=== PATIENT | male | born 1955 | race Caucasian/White ===

== ENCOUNTER 2019-01-28 15:07 | Inpatient (IN) | payer MEDICAID ==
[~2019-01-28] VITALS: Ht 193 cm; Wt 119.3 kg
--- NOTE | ~2019-01-28 | PR ---
[place], [place] PROGRESS NOTE NAME: SHANE DUNCAN UNIT #: [id number] ROOM: 316 DOCTOR: KIM CRUZ DO BIRTHDATE: [birth year] DOS: 02/01/2019 PSYCHIATRIC PROGRESS NOTE. CHIEF COMPLAINT: "Hi, how are you?" SUMMARY VISIT: The patient is interviewed while sitting in the dining garcia. He states he slept well and has no side effects from the medications. He mentioned that he would like us to communicate with his today regarding discharge and placement. Per nursing, the patient slept about 5 hours last night, but was up a few times in the quiet room. They noticed that when he is lying down, he does not have as many of his choreiform movements and that they are more significant when he is sitting in a chair or trying to take his medication. Staff reports the patient's mood has been stable and he is able to communicate appropriately with him. He has been polite with them as well as his peers. MENTAL STATUS EXAMINATION: He is alert and oriented with some time gaps. Mood does seem to be more euthymic. Affect is appropriate. There is no judy, hypomania or gross psychosis. Memory for the most part is intact. PLAN: His valproic acid level was 62.6. We will continue current medication regimen. We will continue to monitor and support, engage in individual and knowles milieu activity, returning to the least restrictive environment when psychiatrically stable. Kim Cruz, DO ARVIN FONTENOT MD CM:PNTRANS [id number] KIM CRUZ DO 02/01/19 1346 interface
--- NOTE | ~2019-01-28 | WRIGHTHP ---
[place], [place] PATIENT HISTORY AND PHYSICAL EXAM NAME: SHANE DUNCAN UNIT #: [id number] ROOM: 316 DOCTOR: ARVIN FONTENOT MD BIRTHDATE: [birth year] DOS: 01/29/2019 CHIEF COMPLAINT: "My Elwell's gets me irritable." HISTORY OF PRESENT ILLNESS: This is a 63-year-old white male who is a resident of [facility] in [place], [place]. The patient is admitted to the [facility] because of his significant alteration in mental status. The patient has become increasingly verbally and physically aggressive and stood over his roommate making verbal threats to cause harm to him. Additionally, he was found fondling of female's breast and his behavior has been increasingly more impulsive and out of control. Because he is putting others at risk for self-harm, it was felt that an inpatient stabilization was warranted. PAST MEDICAL HISTORY: Remarkable for Elwell's disease, osteoarthritis, diabetes, CVA, hyperlipidemia, hypertension, debility, seizure disorder, which is questionable and dementia. SOCIAL HISTORY: The patient is a current cigarette smoker, the length and amount is unknown. He does not use illicit drugs nor does he drink alcohol. ALLERGIES: He lists no known allergies. STRENGTHS: Ambulatory, good verbal skills. WEAKNESSES: Chronic medical and mental health issues, poor coping skills. MENTAL STATUS: The patient is alert and oriented with some minor time gaps. Mood does seem to be somewhat irritable and on edge. He is somewhat dismissive. He denies any symptoms of judy or hypomania and denies current auditory or visual hallucinations. Short-term memory has mild gaps. DIAGNOSES: Intermittent explosive disorder. PLAN: I have already discontinued Zoloft, olanzapine, melatonin and Tagamet in lieu of Risperdal 1 mg twice daily and I have maintained him on Depakote, but increased the dose to 250 mg 3 times a day. I will also now add Exelon patch 4.6 mg daily to impact positively on ADL maintenance, behavior and cognition. We will engage in individual and knowles milieu activities, returning to the least restrictive environment when psychiatrically stable. [place], [place] PATIENT HISTORY AND PHYSICAL EXAM NAME: SHANE DUNCAN UNIT #: [id number] ROOM: 316 DOCTOR: ARVIN FONTENOT MD BIRTHDATE: [birth year] ARVIN FONTENOT MD CM:HISPHYS:PATIENT HISTORY AND PHYSICAL EXAMINATION 8 7 ARVIN FONTENOT MD 01/29/1919 interface
--- NOTE | ~2019-01-28 | PR ---
[place], [place] PROGRESS NOTE NAME: SHANE DUNCAN UNIT #: [id number] ROOM: 316 DOCTOR: ARVIN FONTENOT MD BIRTHDATE: [birth year] DOS: 01/31/2019 INTERVAL NOTE CHIEF COMPLAINT: "I am feeling good, thank you for helping me." SUMMARY OF THE VISIT: The patient was interviewed as he was finishing his breakfast. He reached out and shook my hand. He reports he is feeling better, sleeping well and nurses report no major behaviors. We have not seen any sexually inappropriate behavior either. He is tolerating the current medication regimen well. He is still exhibiting significant choreiform movements. MENTAL STATUS: He is alert and oriented with some time gaps. Mood does seem to be more euthymic. Affect is more appropriate. There is no judy, hypomania or gross psychosis. PLAN: I will increase his Celexa from 10 mg a day to 20 mg a day to combat depression and decrease libido. I will check a valproic acid level in the a.m. to ensure it is therapeutic. We will engage in individual and knowles milieu activity, returning to the least restrictive environment when psychiatrically stable. ARVIN FONTENOT MD CM:PNTRANS [id number] ARVIN FONTENOT MD 01/31/19 1037 interface
--- NOTE | ~2019-01-28 | PR ---
[place], [place] PROGRESS NOTE NAME: SHANE DUNCAN UNIT #: [id number] ROOM: 316 DOCTOR: JOEL SMITH CNP BIRTHDATE: [birth year] DOS: 02/02/2019 CHIEF COMPLAINT: "I'm doing well." SUMMARY OF THE VISIT: The patient was interviewed as he sat in the dining room, eating his breakfast. The patient engaged readily in conversation with me. The patient reports that he slept well last night and that his appetite has been good. The patient denies feeling agitated or anxious. He reports that he is happy. Staff reports that the patient has been compliant taking medications as prescribed. No inappropriate sexual behavior. The patient appears to be stable. MENTAL STATUS EXAMINATION: The patient is alert and oriented to person, place and time. He was pleasant and cooperative with me. No judy or hypomania noted. No delusions or paranoia noted. No psychotic symptoms noted. No auditory or visual hallucinations noted. The patient's mood was calm and bright. His affect congruent with mood. PLAN: We will continue the patient's medications as prescribed. The patient appears to be tolerating meds without side effects. We will continue to monitor for benefits and side effects. We will continue to encourage the patient to engage in individual and knowles milieu activity. Continue fall and safety precautions and plan to return the patient to the least restrictive environment once he is considered psychiatrically stable. Joel Smith CNP CM:PNTRANS 0938 JOEL SMITH CNP 02/02/19 0938 interface
--- NOTE | ~2019-01-28 | DS ---
[place], [place] DISCHARGE SUMMARY [id number] UN[facility] #: [id number] ROOM: 316 DOCTOR: ARVIN FONTENOT MD BIRTHDATE: [birth year] DOS: 02/05/2019 DISCHARGE SUMMARY CHIEF COMPLAINT: "My Waupaca's gets me irritable." HISTORY OF PRESENT ILLNESS: This is a 63-year-old white male who is a resident of [facility]. The patient is admitted to the [facility] Because of the significant alteration in mental status. He has become both verbally and physically aggressive. He stood over his roommate making verbal threats to cause harm to him. Additionally, he was found fondling a female's breast and his behavior has been increasingly more impulsive and out of control. Because he is putting himself and others at substantial risk of harm, he was admitted to the [facility] to rule out organic factors, to stabilize on medication, returning to the least restrictive environment when psychiatrically stable. SUMMARY OF HOSPITAL COURSE: The patient was admitted to the unit where his psychotropic regimen was discontinued. This included Zoloft, olanzapine, and also Tagamet. He was started instead on Risperdal 1 mg twice a day and Depakote 250 mg 3 times a day, Celexa was utilized both as an antidepressant and to decrease libido. Celexa was started at 10 mg a day, increased to 20 mg a day. During the course of his stay, the Depakote was increased to 500 mg a day. He was also started on Exelon patch 4.6 mg a day and during the course of his stay increased to 13.3 mg a day to improve ADLs, behavior and cognition. Overall, the patient had a dramatic improvement. He did not exhibit any sexual acting out. He did not exhibit any verbal or physical aggression. He tolerated the medication changes well and even noted that his choreiform movements decreased in frequency and intensity. He voiced a willingness and a readiness to return back to [facility]. MENTAL STATUS AT DISCHARGE: The patient is alert and oriented with some time gaps. Mood does seem to be euthymic. Affect is appropriate. There is no judy, hypomania or psychosis. Short term memory has some mild gaps, but for the most part, he is intact. 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 DISPOSITION: All of his prescriptions have been e-scribed to the [facility] [place]. At the time of discharge, he is medically and psychiatrically stable. I will be the treating psychiatrist of record upon his readmission to [facility]. [place], [place] DISCHARGE SUMMARY NAME: SHANE DUNCAN UNIT #: [id number] ROOM: 316 DOCTOR: ARVIN FONTENOT MD BIRTHDATE: [birth year] ARVIN FONTENOT MD CM:DISCHARG [id number] ARVIN FONTENOT MD 02/05/19 1010 interface
--- NOTE | ~2019-01-28 | PR ---
[place], [place] PROGRESS NOTE [id number] UN[facility] #: [id number] ROOM: 316 DOCTOR: KIM CRUZ DO BIRTHDATE: [birth year] DOS: 01/30/2019 PSYCHIATRIC PROGRESS NOTE CHIEF COMPLAINT: "My visited last night and we have been together for 46 years. SUMMARY OF THE VISIT: The patient is interviewed while sitting in the dining garcia. He states he slept well and denies any side effects from the medications. We advised the patient that we will continue to work on his medications to help with his constant body movements that are secondary to his Forrest's disease and he agrees with the plan. He states he liked how his visited him last night and that they have been together for over 46 years. He is polite and cooperative throughout the entire interview. Per nursing, the patient slept throughout the night. Staff reports the patient's mood has been stable and he is able to communicate appropriately. He has been polite with staff and peers. He did, however, refuse glucose checks and insulin coverage, but he states that they do not do that in the jail [facility]. MENTAL STATUS EXAMINATION: He is alert and oriented x 3. He denies any symptoms of judy or hypomania. Denies current auditory or visual hallucinations. Short-term memory has some mild gaps. Mood is overall euthymic. Affect is appropriate. PLAN: Increase his Risperdal to 1 mg t.i.d. We will continue to monitor and support, engage in individual and knowles milieu activity, returning to the least restrictive environment when psychiatrically stable. Kim Cruz, DO ARVIN FONTENOT MD CM:SEDRICK 2 46 KIM CRUZ DO 01/30/192246 interface
--- NOTE | ~2019-01-28 | PR ---
[place], [place] PROGRESS NOTE NAME: SHANE DUNCAN UNIT #: [id number] ROOM: 316 DOCTOR: ARVIN FONTENOT MD BIRTHDATE: [birth year] DOS: 02/04/2019 INTERVAL NOTE CHIEF COMPLAINT: "Good morning doc, thanks for everything." SUMMARY OF THE VISIT: The patient was interviewed in the dining room where he was sitting with female peers. He stopped and engaged readily in conversation with me shaking my hand and thanking me for everything I have done. He reports he feels good and that he even notes that his tremors and choreiform movements have lessened in intensity. He reports no other issues and denies sedation, somnolence, extrapyramidal symptoms or tardive dyskinesia. MENTAL STATUS: He is alert and oriented with some time gaps. Mood does seem to be more euthymic. Affect is more appropriate. There is no judy, hypomania or gross psychosis. Short-term memory does have some mild gaps. PLAN: I will go ahead and increase his Exelon patch from 4.6 to 9.5 mg a day in an effort to impact positively on ADL maintenance, behavior and cognition, maintain his other psychotropic medications, engage in individual and knowles milieu activity, returning to the least restrictive environment when psychiatrically stable. ARVIN FONTENOT MD CM:PNTRANS [id number] ARVIN FONTENOT MD 02/04/19 1148 interface
[2019-01-28] MEDS ORDERED: ZOLOFT100 MG PO (20:21)
[2019-01-28] MEDS ORDERED: ZYPREXA5 M1 PO (20:22)
[2019-01-28] MEDS ORDERED: DEPAKOTE125 MG PO (20:22)
[2019-01-28] MEDS ORDERED: TAGAMET HB200 M1 PO (20:23)
[2019-01-28] MEDS ORDERED: MELATONIN5 M1 PO (20:23)
[2019-01-28] MEDS ORDERED: DEPAKOTE250 MG PO (20:25)
[2019-01-28 23:21] VITALS: BP 157/84
[2019-01-29 01:02] VITALS: BP 157/84
[2019-01-29 07:24] LABS: BASO % 0.2 % (0.0-1.0); EOS # 0.1 10*3/uL (0.0-0.4); HEMATOCRIT 46.2 % (42.0-52.0); HEMOGLOBIN 15.1 g/dl (14.0-18.0); LYMPH # 1.7 10*3/uL (1.3-4.4); LYMPH % 34.7 % (27.0-41.0); MEAN CELL VOLUME 88.5 fl (80.0-94.0); MEAN CORPUSCULAR HGB 28.9 pg (27.0-31.0); MEAN CORPUSCULAR HGB CONC 32.7 g/dl (33.0-37.0); MEAN PLATELET VOLUME 10.1 fl (9.6-12.3); MONO # 0.5 10*3/uL (0.1-1.0); MONO % 9.6 % (3.0-9.0); NEUT # 2.6 10*3/uL (2.3-7.9); NEUT % 54.1 % (47.0-73.0); PLATELET COUNT AUTOMATED 132 10*3/uL (130-400); RED BLOOD COUNT 5.22 10*6/uL (4.50-5.90); RED CELL DISTRI WIDTH 14.5 % (0-14.5); WHITE BLOOD COUNT 4.8 10*3/uL (4.8-10.8)
[2019-01-29 07:41] LABS: ALBUMIN 3.6 gm/dl (3.1-4.5); BUN 18 mg/dl (7-24); CHLORIDE 104 mmol/L (98-107); CHOLESTEROL 195 mg/dL (<200); CREATININE 1.06 mg/dL (0.70-1.30); POTASSIUM 3.8 mmol/L (3.5-5.1); SGOT/AST 37 IU/L (3-35); SGPT/ALT 47 U/L (12-78); SODIUM 141 mmol/L (136-145); TOTAL PROTEIN 6.9 gm/dL (6.4-8.2); TRIGLYCERIDES 166 mg/dl (<150); VLDL CHOLESTEROL 33 mg/dL (6-40)
[2019-01-29 07:50] LABS: ALKALINE PHOSPHATASE 76 U/L (45-117); HDL CHOLESTEROL 32 mg/dl (40-60); LDL CHOLESTEROL 130 mg/dL (9-159); THYROID STIM HORMONE (HS) 0.929 uIU/ml (0.358-4.75)
[2019-01-29 08:01] VITALS: BP 150/67
[2019-01-29] MEDS ORDERED: XARE20MG PO (11:15)
[2019-01-29] MEDS ORDERED: TYLENOL325 M2 PO (11:16)
[2019-01-29] MEDS ORDERED: ASPIR LOW81 MG PO (11:16)
[2019-01-29] MEDS ORDERED: CEPACOL SORE T1 EACH MM (11:17)
[2019-01-29] MEDS ORDERED: LASIX20 MG PO (11:18)
[2019-01-29] MEDS ORDERED: FISH OIL 1,0001 EAC2 PO (11:18)
[2019-01-29] MEDS ORDERED: LMX4 4% TRANSPAR1 EA PO (11:19)
[2019-01-29] MEDS ORDERED: LIDOCAINE PAIN1 EACH T (11:22)
[2019-01-29 19:28] VITALS: BP 141/67
[2019-01-30 07:41] VITALS: BP 106/85
[2019-01-30 20:00] VITALS: BP 144/85
[2019-01-31 08:06] VITALS: BP 162/72; BP 174/80
[2019-01-31 20:00] VITALS: BP 132/76
[2019-02-01 07:45] VITALS: BP 158/83
[2019-02-01 19:38] VITALS: BP 148/76
[2019-02-02 07:40] VITALS: BP 145/76
[2019-02-02 20:00] VITALS: BP 140/72
[2019-02-03 07:08] VITALS: BP 143/86
[2019-02-03 20:02] VITALS: BP 139/68
[2019-02-04 07:59] VITALS: BP 142/83
[2019-02-04 20:00] VITALS: BP 122/86
[2019-02-05 07:42] VITALS: BP 156/76
[2019-02-05] MEDS ORDERED: RISPERIDONE1 MG PO (09:48)
[2019-02-05] MEDS ORDERED: CITALOPRAM20 MG PO (09:48)
[2019-02-05] MEDS ORDERED: DIVALPROEX SOD250 MG PO (09:48)
[2019-02-05] MEDS ORDERED: RIVASTIGMINE1 EAC1 T (09:48)
== END 2019-02-05 17:40 | DRG 883 ==
LOC: 3N 15:07
PROVIDERS: ADMIT Psychiatry & Neurology Psychiatry
DX: F63.81 Intermittent explosive disorder (principal); G10 Huntington's disease; F01.51 Vascular dementia, unspecified severity, with behavioral disturbance; F33.3 Major depressive disorder, recurrent, severe with psychotic symptoms; I10 Essential (primary) hypertension; E11.65 Type 2 diabetes mellitus with hyperglycemia; R13.10 Dysphagia, unspecified; F17.210 Nicotine dependence, cigarettes, uncomplicated; F41.9 Anxiety disorder, unspecified; E78.5 Hyperlipidemia, unspecified; M19.90 Unspecified osteoarthritis, unspecified site; G40.909 Epilepsy, unspecified, not intractable, without status epilepticus; Z86.73 Personal history of transient ischemic attack (TIA), and cerebral infarction without residual deficits; Z79.84 Long term (current) use of oral hypoglycemic drugs; Z95.1 Presence of aortocoronary bypass graft; Z79.82 Long term (current) use of aspirin; Z79.899 Other long term (current) drug therapy

== ENCOUNTER 2019-03-19 12:03 | Inpatient (IN) | payer MEDICAID ==
[~2019-03-19] VITALS: Ht 193 cm; Wt 104.8 kg
[~2019-03-19 12:03] MED LIST: ASPIR LOW81 MG PO; CEPACOL SORE T1 EACH MM; CITALOPRAM20 MG PO; DEPAKOTE125 MG PO; DEPAKOTE250 MG PO; DIVALPROEX SOD250 MG PO; FISH OIL 1,0001 EAC2 PO; LASIX20 MG PO; LIDOCAINE PAIN1 EACH T; LMX4 4% TRANSPAR1 EA PO; MELATONIN5 M1 PO; RISPERIDONE1 MG PO; RIVASTIGMINE1 EAC1 T; TAGAMET HB200 M1 PO; TYLENOL325 M2 PO; XARE20MG PO; ZOLOFT100 MG PO; ZYPREXA5 M1 PO
[2019-03-19] MEDS ORDERED: ZANAFLEX4 M2 PO (13:20)
[2019-03-19] MEDS ORDERED: DULCOLAX5 M1 PO (13:21)
[2019-03-19] MEDS ORDERED: MECLIZINE HCL25 M2 PO (13:22)
[2019-03-19] MEDS ORDERED: TRAMADOL HCL50 MG PO (13:23)
[2019-03-19] MEDS ORDERED: BIOFREEZE118 ML T (13:25)
--- NOTE | 2019-03-19 14:21 | NUR ---
SHANE DUNCNA a 63 year old M admitted via wheel chair from the [facility] as a voluntary admission BY POA. Arrived on unit at 1421. ALLERGIES: NKA. Vital signs are: 97.3-72-16 141/77. The client's POA verbally consented to the following forms with stated understanding: Authorization For The Release of Medical Information, Clothing List, Consent to Voluntary Admission and Hospitalization, Consent and Release Forms/Receipt of Rights, Acknowledgement of Advance Directive Information, Behavioral Health Consent Form, and Informed Consent of Medications. Admitted under the services of Dr. CORIE MCNEILL,[facility]. A search was conducted and hazardous articles were removed. Client was oriented to the unit. RASHIDA ENRIQUE PT ALERT AND ORIENTED X4. NO WOUNDS OR OPEN AREAS NOTED ON ADMISSION. PT PLEASANT AND COOPERATIVE WITH INTERVIEW QUESTIONS.
[2019-03-19 14:31] VITALS: BP 141/77
[2019-03-19 14:35] VITALS: BP 141/77
--- NOTE | 2019-03-19 14:40 | NUR ---
CALL PLACED TO HOSPITALIST CELL #[address] ON NEW PT AND COMPLETION OF HEALTH HISTORY AND MEDICATIONS. ORDER TO PLACE CONSULT UNDER DR BOWEN.
[2019-03-19 19:39] VITALS: BP 132/71
--- NOTE | 2019-03-19 20:15 | NUR ---
24 HR chart check completed.
--- NOTE | 2019-03-19 20:46 | NUR ---
EVENING PT SLEEPING ON AND OFF AND WOULD PARTICIPATE IN HALLEEN TRIVIA IF HE HEARD THE QUESTION AND KNEW THE ANSWER. PT ISOLATING TOWARDS FRONT OF ROOM AND REMAINED ALONE ALTHOUGH ENCOURAGED TO JOIN THE GROUP. PT ATE SNACK AND WENT TO BED. PT WILL CONTINUE TO ATTEND AND BE ENCOURAGED TO PARTICIPATE TO BEST OF PT ABILITY.
--- NOTE | 2019-03-19 22:30 | NUR ---
P-DEPRESSION, ANXIETY, ISOLATIVE I-ENCOURAGED VENTILATION OF FEELINGS & PROVIDE EMOTIONAL SUPPORT, ASSESS STRESSORS, ADMINISTER MEDICATIONS, MONITOR SLEEP R-PT REPORTS FEELING DEPRESSED & HAVING SOME ANXIETY RELATED TO RECENT EVENTS AT THE [facility] OF HAVING ISSUES WITH HIS ROOM MATE. ALERT & ORIENTED X 4. STATED THAT HIS ROOM MATE "MOANS ALOT & YOU NEVER KNOW WHAT HES UP TO". PT IS VERY PLEASANT & RESPECTFUL TO STAFF. SITS IN THE DINING ROOM WATCHING TV BUT IS QUIET & ISOLATES TO HIMSELF. COMPLIANT TAKING MEDS. ATE SNACK. MOVES ABOUT THE UNIT VIA WHEELCHAIR. SOMETIMES REQUIRES 1 ASSIST FOR TRANSFERS OR REPOSTIONING BUT MAKES ATTEMPTS TO DO THINGS FOR HIMSELF. P-CONTINUE TO MONITOR & PROVIDE PHYSICAL ASSISTANCE & EMOTIONAL SUPPORT NEEDED
--- NOTE | 2019-03-20 06:16 | NUR ---
PT HAS SLEPT PAST 2214
[2019-03-20 07:19] LABS: BASO % 0.2 % (0.0-1.0); EOS # 0.1 10*3/uL (0.0-0.4); EOS % 1.5 % (1.0-4.0); HEMATOCRIT 46.9 % (42.0-52.0); HEMOGLOBIN 15.5 g/dl (14.0-18.0); LYMPH # 1.5 10*3/uL (1.3-4.4); LYMPH % 36.8 % (27.0-41.0); MEAN CELL VOLUME 89.7 fl (80.0-94.0); MEAN CORPUSCULAR HGB 29.6 pg (27.0-31.0); MEAN PLATELET VOLUME 10.4 fl (9.6-12.3); MONO # 0.4 10*3/uL (0.1-1.0); MONO % 10.7 % (3.0-9.0); NEUT # 2.1 10*3/uL (2.3-7.9); NEUT % 50.8 % (47.0-73.0); PLATELET COUNT AUTOMATED 106 10*3/uL (130-400); RED BLOOD COUNT 5.23 10*6/uL (4.50-5.90); RED CELL DISTRI WIDTH 13.6 % (0-14.5); WHITE BLOOD COUNT 4.1 10*3/uL (4.8-10.8)
[2019-03-20 07:33] VITALS: BP 140/70
[2019-03-20 07:44] LABS: ALBUMIN 3.6 gm/dl (3.1-4.5); ALKALINE PHOSPHATASE 54 U/L (45-117); BUN 20 mg/dl (7-24); CHLORIDE 101 mmol/L (98-107); CHOLESTEROL 212 mg/dL (<200); CREATININE 1.01 mg/dL (0.70-1.30); HDL CHOLESTEROL 34 mg/dl (40-60); LDL CHOLESTEROL 153 mg/dL (9-159); POTASSIUM 3.8 mmol/L (3.5-5.1); SGOT/AST 24 IU/L (3-35); SGPT/ALT 40 U/L (12-78); SODIUM 138 mmol/L (136-145); TOTAL PROTEIN 6.7 gm/dL (6.4-8.2); TRIGLYCERIDES 125 mg/dl (<150); VLDL CHOLESTEROL 25 mg/dL (6-40)
[2019-03-20 07:55] LABS: VALPROIC ACID (DEPAKENE) 56.1 ug/ml (50-100)
--- NOTE | 2019-03-20 07:55 | NUR ---
Patient resting quietly with no c/o discomfort. Respirations easy and regular. Vital signs stable. No overt distress. YUMIKO AVALOS
--- NOTE | 2019-03-20 08:00 | NUR ---
Treatment Plan meeting with Dr. Chairez, RN, AT, and [employer]. Plan for discharge next week. Pt. will return to [facility] at this point.
[2019-03-20 08:19] LABS: VITAMIN D, 25-HYDROXY 37.7 ng/mL (30-100)
--- NOTE | 2019-03-20 09:17 | NUR ---
Nursing screen receieved as well as occupational therapy orders. Will follow up with patient. Thank you for the screen and referral. Amy Sun OTR/L
--- NOTE | 2019-03-20 11:15 | NUR ---
PHYSICAL THERAPY Attempted physical therapy evaluation however Pt refused. Will attempt again later. Thank you Jazlyn Wall, PT, DPt
--- NOTE | 2019-03-20 11:15 | NUR ---
Occupational therapy orders received. Patient was in bed upon in room upon OT arrival. Nursing present for observation only. Patient refusing OT evaluation at this time. Patient would prefer for evaluation to be completed in the afternoon. Will follow up in afternoon. Thank you. Amy Sun, OTR/L
--- NOTE | 2019-03-20 11:15 | NUR ---
PHYSICAL THERAPY Attempted physical therapy evaluation however Pt refused. Will attempt again later. Thank you Jazlyn Wall, PT, DPT
--- NOTE | 2019-03-20 11:50 | NUR ---
AM GROUP PT DID NOT ATTEND MORNING GROUP THERAPY. PT WAS IN BED RESTING.
--- NOTE | 2019-03-20 13:11 | NUR ---
PHYSICAL THERAPY Physical Evaluation completed, 3N. Details and evaluation to follow. Moderate complexity determined after evaluation/chart review, [id number]. PT to work on strength, endurance, safety, transfers, gait. recommending SNF at discharge. Thank you Jazlyn Wall, PT, DPT
--- NOTE | 2019-03-20 13:11 | NUR ---
Occupational therapy orders received and OT evaluation and POC completed in full on floor three. Patient precautions include fall risk, w/c and ww use, Novi's chorea, and dizziness. Per OT evaluation and POC, OT recommends SNF. Patient would benefit from OT treatment to maximize independence in ADLs, strength, and functional mobility/transfers. Patient complexity is moderate, [id number]. Thank you for the referral. Amy Sun, OTR/L
--- NOTE | 2019-03-20 13:15 | NUR ---
SPEECH PATHOLOGY Clinical swallowing evaluation completed due to reports of dysphagia. Medical history includes Bill's disease, anxiety, DM, HTN, dysphagia, hx of CVA, muscle weakness, seizures and paranoia. He was admitted with intermittent explosive disorder. He currently receives a regular diet and thin liquid. Patient was seen during lunchtime meal. He was sitting upright in activity room with peers. Patient denied any chewing or swallowing problems. He was observed consuming a variety of food and liquid items during the meal. Patient displayed no overt oral or pharyngeal difficulty. Patient was able to self feed and appetite was good. Throughout the meal he demonstrated appropriate use of universal safety precautions such as small bites and sips, eating slowly and clearing his mouth before next bite. Recommend he remain on present diet. No follow up therapy is warranted. Results and recommendations were shared with patient and his nurse and they verbalized understanding. [facility]. Thank you for this referral. NORAH RANDOLPH MSCCC-TRANSMITTER OPERATOR
--- NOTE | 2019-03-20 13:44 | NUR ---
Inpatient auth started on Medicaid [place] portal. Ref # [id number]
--- NOTE | 2019-03-20 14:57 | NUR ---
Spoke with Suly Anguiano, group work program director at [facility]. Suly stated that she learned from the it administrator this AM that a 30 day notice of discharge was issued for patient. It was mailed to pt's today. Pt and his are not aware of this at the time that this call was made to Suly.
--- NOTE | 2019-03-20 15:36 | NUR ---
Shift chart check completed.
--- NOTE | 2019-03-20 15:40 | NUR ---
PM GROUP PT DID NOT ATTEND AFTERNOON GROUP THERAPY UNTIL THE VERY END. PT EXPLAINED WHY HE WAS HERE AND EXPRESSED FRUSTRATION OVER IT. PT EXHIBITED NO AGITATION WHILE IN GROUP.
--- NOTE | 2019-03-20 15:43 | NUR ---
Spoke with Eder at [facility] in Admissions. Notified of Pt. needing alternate placement and Referral faxed to facility [phone] Attn:
[2019-03-20 16:52] LABS: BILIRUBIN NEGATIVE (NEGATIVE); BLOOD NEGATIVE (NEGATIVE); CLARITY SL CLOUDY (CLEAR); COLOR YELLOW (YELLOW); GLUCOSE NEGATIVE (NEGATIVE); KETONE NEGATIVE (NEGATIVE); LEUKO ESTERASE NEGATIVE (NEGATIVE); NITRITE NEGATIVE (NEGATIVE); PH 5.5 (5.0-9.0); SPECIFIC GRAVITY 1.025 (1.005-1.030)
[2019-03-20 17:00] LABS: EPITHELIAL CELLS 0-2; MUCOUS 2+
--- NOTE | 2019-03-20 17:03 | NUR ---
PT HELPLESS. STATES HE CANNOT PROPEL SELF IN W/C. STATES HE CANNOT COVER SELF UP WITH BLANKETS. ASSESSED FOR ORIENTATION, MOOD, AND AFFECT. ASSESSED FOR MOBILITY AND GAIT. MEDICATION EDUCATION PROVIDED. PT ENCOURAGED TO PARTICIPATE IN ADL'S MUCH ABLE. PT IS ALERT, ORIENTED X 4. MOOD IS DEPRESSED, AFFECT IS FLAT. PT ABLE TO STAND UP INDEPENDENTLY, STANDBY ASSIST FOR TRANSFER REQUIRED. PT ABLE TO USE ARMS AND LEGS TO PROPEL SELF, ENCOURAGED TO REST NEEDED. PT TRANSFERRED SELF FROM BED TO CHAIR, TO TOILET, CHAIR AND BACK TO BED WITHOUT DIFFICULTY. SHUFFLING, UNSTEADY GAIT. STANDBY ASSIST. PT MEDICATION COMPLIANT WITHOUT DIFFICULTY. Q 15 MIN MONITORING PER POLICY. ENCOURAGE PT TO INTERACT WITH PEERS AND STAFF. ENCOURAGE PT TO COMPLETE ADL'S INDEPENDENTLY ABLE TO MAINTAIN MAXIMUM FUNCTIONAL MOBILITY, STAFF ASSIST NEEDED. ENCOURAGE PT TO PARTICIPATE IN GROUP THERAPY FOR SOCIALIZATION AND SUPPORT. Q15 MIN MONITORING PER POLICY.
[2019-03-20 19:22] VITALS: BP 146/62
--- NOTE | 2019-03-20 21:36 | NUR ---
P-DEPRESSION, ISOLATIVE I-ENCOURAGED VENTILATION OF FEELINGS & PROVIDE EMOTIONAL SUPPORT, ADMINISTER MEDICATIONS, MONITOR SLEEP R-PT REPORTS FEELING DEPRESSED & HAS SAD FACIES. ALERT & ORIENTED X 4. SAT IN DINING ROOM WATCHING TV BUT WAS QUIET & ISOLATES TO HIMSELF. COMPLIANT TAKING MEDS. ATE SNACK. MOVES ABOUT THE UNIT VIA WHEELCHAIR. SOMETIMES REQUIRES 1 ASSIST FOR TRANSFERS OR REPOSTIONING. HAS REQUESTED XTRA ASSISTANCE THIS EVENING STATING HIS LEFT SHOULDER HAS BEEN BOTHERING HIM WHERE HE HAD SURGERY ON HIS AC JOINT. WALKED INTO SHOWER WITH STANDBY ASSIST. COMPLETED ADLS. P-CONTINUE TO MONITOR & PROVIDE PHYSICAL ASSISTANCE & EMOTIONAL SUPPORT NEEDED
--- NOTE | 2019-03-20 21:48 | NUR ---
24 HR chart check completed.
--- NOTE | 2019-03-21 05:43 | NUR ---
PT HAS SLEPT PAST 2214.
--- NOTE | 2019-03-21 07:30 | NUR ---
PHYSICAL THERAPY Patient was supine in bed this am when approached for therapy visit, with OT speech and language assistant present for observation only. Patient repeated declined any and all treatment this date stating he was hurting all over. When asked for specifics, patient reported all his joints / muscles hurt and that he only wanted to stay in bed. Patient encouraged for active participation, howver even declined offer to assist transfer to / for breakfast, opting to stay in bed. Will continue per POC as able. Elías Chiu, AUTOMATIC SPOOLER OPERATOR
--- NOTE | 2019-03-21 07:30 | NUR ---
OT NOTE Attempted to see pt this A.M. for OT session and upon arrival pt was supine in bed. Pt identified by name and and had complaints of "hurting all over." Pt declined any and all tasks presented at this time including declining to come to breakfast. Pt reported that he was just staying in bed. Will check back at a later time/date and continue with POC as able. DARRICK Cao/[place]
[2019-03-21 08:00] VITALS: BP 138/52
--- NOTE | 2019-03-21 10:38 | NUR ---
Received Call from Lakshmi At [facility]. Referral Declined at this time due to Behaviors.
--- NOTE | 2019-03-21 11:15 | NUR ---
DR. BOWEN ON UNIT TO ASSESS PATIENT.
--- NOTE | 2019-03-21 11:44 | NUR ---
Referral faxed to [facility] for petroleum terminal plant operator care placement.
--- NOTE | 2019-03-21 11:54 | NUR ---
AM GROUP PT ATTENDED MORNING GROUP THERAPY AND SAT AND OBSERVED. PT DECLINED ANY ACTIVITY OFFERED. PT DID NOT PARTAKE IN CONVERSATION BUT SAT QUIETLY.
--- NOTE | 2019-03-21 15:39 | NUR ---
PM GROUP PT ATTENDED AFTERNOON GROUP AND PARTICIPATED BY LISTENING TO MUSIC AND SOCIALIZING WITH NURSING STUDENTS. PT EXHIBITED NO AGITATION WHILE IN GROUP
--- NOTE | 2019-03-21 15:56 | NUR ---
P: ISOLATIVE, WITHDRAWN DURING THE DAY AND DEPRESSED. I: ONE ON ONE AND REDIRECTION; ENCOURAGED TO PARTICIPATE IN GROUPS AND INTERACT WITH STAFF AND OTHER PATIENTS. R: EFFECTIVE, PATIENT OUT OF BEDROOM FOR MEALS AND TO PARTICIPATE IN GROUP SESSION. PATIENT IS ALERT TO PERSON, PLACE, TIME AND SITUATION. ABLE TO VOICE NEEDS. MOOD IS DEPRESSED AND ISOLATIVE. DENIES ANY HALLUCINATIONS, DELUSIONS, HI/SI OR PAIN. 1 PERSON ASSIST WITH ACTIVITIES OF DAILY LIVING, CONTINENT OF BOWEL AND BLADDER. SET UP FOR MEALS, INTAKES ARE FAIR WITH ADEQUATE FLUIDS. MEDICATION COMPLAINT; Q 15 MINUTE SAFETY CHECKS MAINTAINED. P: CONTINUE TO MONITOR FOR ANGRY OUTBURST AND MOOD. PROVIDE ONE ON ONE AND REDIRECTION NEEDED.
--- NOTE | 2019-03-21 17:00 | NUR ---
OCCUPATIONAL THERAPY CO-SIGN I approve of the Occupational Therapy notes written above. JANICE ARMSTRONG OTR/[place]
[2019-03-21 19:33] VITALS: BP 138/72
--- NOTE | 2019-03-21 23:00 | NUR ---
P-ISOLATIVE. PATIENT ALERT AND ORIENTED. NO SHORT TERM OR ARBOREAL SCIENTIST MEMORY DEFICITS AT THIS TIME. NO RESPIRATORY DISTRESS. PATIENT WITH NO HALLUCINATIONS OR DELUSIONS. PATIENT WITH NO SUICIDAL OR HOMICIDAL IDEATIONS. I-REDIRECTION WITH 1:1 THERAPEUTIC INTERVENTIONS. EDUCATE AND ENCOURAGE MEDICATION COMPLIANCE R-PATIENT ISOLATIVE TO ROOM DURING HS. PATIENT MEDICATION COMPLIANT. PATIENT PROVIDED FLUIDS AND REFUSED NOURISHMENT AT HS. PATIENT WITH NO INTERACTION WITH PEERS AT HS. P-CONTINUE TO ENCOURAGE MEDICATION COMPLIANCE, ENCOURAGE GROUP THERAPY WHILE AWAKE
--- NOTE | 2019-03-22 05:48 | NUR ---
PATIENT SLEPT 7 HOURS OF INTERRUPTED SLEEP THROUGHOUT SHIFT. Q 15 MINUTE CHECKS MAINTAINED. 24 HR chart check completed.
--- NOTE | 2019-03-22 07:25 | NUR ---
PHYSICAL THERAPY Patient seen this am for therapy visit and was just awakening supine in bed upon therapist arrival. OT digital assistant was present for observation only as patient identified by name / . Patient reports chronic L shouulder pain, including Arthritis, but unable to rate pain on 1-10 scale. Patient transfers supine to sit EOB with MIN A and sit to stand CGA x 1. Patient needed a few seconds standing to collect himself, then ambulated CEMENT CAR DUMPER/CGA, 40'x 1, demonstrating "waddling" gait pattern with "head down" posture. Patient needed several v/c's to look up / forward with increased stride, but unable to improve nicole. Patient fatigues quickly and required w/c follow for safety and returned to w/c in activity room following all treatemnt. Patient remained at table awaiting breakfast under [facility] staff Supervision. Will continue per POC as tolerated, total treatment time 14 minutes. Elías Chiu, GREETING CARD MAKER
--- NOTE | 2019-03-22 07:30 | NUR ---
OT NOTE Pt was seen this A.M. 1:1 for 12 minute OT session with SANITATION TRUCK CLEANER and nursing staff present for observation only. Upon arrival pt was supine in bed. Pt identified by name and and had no complaints at this time. Pt transferred supine to sit EOB with Steffen and use of bed rails for UE support. Sit to stand completed from bed level with Steffen SKEIN BLEACHER. Functional mobility was then completed around the room with Steffen SKEIN BLEACHER. Challenged pt's static standing tolerance needed for increased I in self care tasks and funcitonal transfers and pt was able to tolerate aprox 4 minutes at a time before sitting due to fatigue. Pt was left sitting upright in the w/c in the dining room under [facility] staff supervision. Continue with POC as able. DARRICK Cao/[place]
[2019-03-22 07:37] VITALS: BP 134/66
--- NOTE | 2019-03-22 08:00 | NUR ---
Treatment Plan meeting with Dr. Chairez, RN, AT, SW and Director Of Clinical Applications. Plan for discharge next week. Pt. is accepted at [facility]. Will Follow on Monday.
--- NOTE | 2019-03-22 09:45 | NUR ---
PT PLEASANT COOPERATIVE MEDICATION COMPLIANT. SPOKE WITH PT ABOUT ANGRY OUTBURSTS IN WHICH HE STATED THAT IT IS BECAUSE OF HIS [place], AND HE DOESN'T KNOW WHY IT HAPPENS. HE IS UPSET ABOUT GETTING HIS NOTICE FROM HIS CURRENTLY LIVING ENVIRONMENT, "THEY ARE JUMPING THE GUN, I DIDN'T HURT ANYONE, AND I WOULDN'T" INSTRUCTED PT TO LET US KNOW WHEN HE GETS ANNOYED WITH OTHERS, OR WHEN FEELING AGITATED TO HELP US FIGURE OUT WHAT MIGHT BE TRIGGERING HIM TO HAVE THE OUTBURST. PT CURRENTLY IN BED RESTING, NO SI/HI OR DELUSIONS NOTED
--- NOTE | 2019-03-22 11:59 | NUR ---
AM GROUP PT ATTENDED MORNING GROUP THERAPY FOR A FEW MINUTES AND CHOSES NOT TO PARTICIPATE. PT SEEMED EXCITED THAT HIS WOULD BE VISITING TODAY. PT EXHIBITED NO AGITAION WHILE IN GROUP
--- NOTE | 2019-03-22 14:08 | NUR ---
Late Entry: Spoke with pt's Mary Ellen by phone 03/21/19 AM in regards to pt's discharge plan. When asked, Mary Ellen stated that she has had no interaction with [facility]. Informed Mary Ellen of this poem writer's conversation with Suly Anguiano of [place] yesterday. Mary Ellen became emotional during discussion of alternate NFs for pt. Empathized with Mary Ellen and provided support. Offered to Mary Ellen that this poem writer would like to make numerous NF referrals for pt, so that Mary Ellen will hopefully have NF options to choose from. Mary Ellen is agreeable to this. Discussed specifically [facility], [facility], and [facility].
--- NOTE | 2019-03-22 14:14 | NUR ---
Late Entry: Was informed that a sales representative aircraft of [facility] was at [facility] on 03/21/19 to give 30 day discharge letter to pt. This typewriter tester took the [facility] nurse to pt's room, so that the letter could be given to pt. After this typewriter tester walked the nurse out of [facility], this typewriter tester returned to pt's room. Assisted pt in processing what had just happened. Assisted pt in understanding what the letter meant. Allowed pt to express his emotions and provided support. Confirmed that this typewriter tester, along with pt's , would work together to find another NF for pt and that pt would be kept informed. Pt voiced appreciation. After meeting with pt, this typewriter tester phoned pt's Mary Ellen and informed her of what had happened. Mary Ellen expressed that she was quite upset that [facility] had done this. She also stated that she has yet to receive the letter in the mail from [place].
--- NOTE | 2019-03-22 14:22 | NUR ---
Late Entry: Irena Ojeda from [facility] was at [facility] on 03/21/19 to discuss referral of pt and to meet pt. After doing so, Irena confirmed that pt would be accepted to [facility]. Phoned pt's Mary Ellen and informed her of this. Mary Ellen plans on taking a tour of the facility tomorrow.
--- NOTE | 2019-03-22 14:24 | NUR ---
Met with pt this AM in his room. Encouraged pt to share his feelings about being discharged from [facility]. Pt shared his frustration. Assisted pt in processing and support provided. Pt requested that this pattern chart writer take the [facility] letter from his nightstand drawer and keep it in the office. Pt was pleasant in conversation. Pt expressed his emotions in an appropriate manner and voiced appreciation to this pattern chart writer.
--- NOTE | 2019-03-22 14:31 | NUR ---
The patient has no complaints and is resting comfortably. NAA SIMS
--- NOTE | 2019-03-22 14:36 | NUR ---
Met with pt and his Mary Ellen during visiting hours. Discussed pt's discharge from [facility]. Gave the 30 day discharge letter to Mary Ellen. Mary Ellen shared about her interaction with the application administrator of [place] [facility] today prior to her [facility] visit. Discussed discharge options. Mary Ellen stated that she is going to talk to her children about [facility]. Mary Ellen did tour there today and commented that she really likes that pt would have a private room. Await Mary Ellen's decision.
--- NOTE | 2019-03-22 15:37 | NUR ---
PM GROUP PT ATTENDED AFTERNOON GROUP THERAPY BUT CHOOSES NOT TO PARTICIPATE IN ANY ACTIVITY OFFERED. PT SAT AND OBSERVED ME CROCHETTING AND ABRUPTLY ASKED ME IF I WOULD STOP. I DID AND PUT EVERYTHING AWAY AND BEGAN SOCIALIZING WITH PT AND PEERS. PT THEN LEFT THE DAYROOM AND DID NOT RETURN
--- NOTE | 2019-03-22 16:27 | NUR ---
PHYSICAL THERAPY CO-SIGN I approve of the Physical Therapy notes written above. TAMMY ACEVEDO PT,DPT
[2019-03-22 19:09] VITALS: BP 132/62
--- NOTE | 2019-03-23 02:41 | NUR ---
NO ADVERSE BEHAVIORS NOTED. PT ALERT AND ORIENTED X4. PT CALM, COOPERATIVE, ISOLATIVE TO ROOM AND BED. PT REFUSED HS SNACK. MEDICATION COMPLIANT WITHOUT DIFFICULTY. PT DENIES SI/HI AND HALLUCINATIONS. NO NOTED RESPONDING TO INTERNAL STIMULI. NO AGITATION OR AGGRESSION NOTED. NO PHYSICAL COMPLAINTS VOICED. PT CURRENTLY LAYING DOWN WITH EYES CLOSED, RESPIRATIONS EASY AND REGULAR, NO SIGNS OR SYMPTOMS OF DISTRESS NOTED. PLAN IS TO CONTINUE TO MONITOR MOOD AND BEHAVIORS. PROVIDE 1:1 FOR VENTILATION OF FEELINGS. ENCOURAGE MEDICATION COMPLIANCE AND EDUCATE. MAINTAIN Q 15 MIN CHECKS.
--- NOTE | 2019-03-23 02:57 | NUR ---
24 HOUR CHART CHECK COMPLETED.
--- NOTE | 2019-03-23 05:40 | NUR ---
PATIENT OBSERVED ON Q 15 MIN CHECKS TO HAVE SLEPT APPROX 8 HOURS WITH NO AWAKENINGS OR SIGNS AND SYMPTOMS OF DISTRESS NOTED.
[2019-03-23 08:00] VITALS: BP 134/76
--- NOTE | 2019-03-23 11:49 | NUR ---
PM/ART/MUSIC PT ENCOURAGED TO ATTEND AM GROUP BUT PT STATES "NO I DON'T THINK I FEEL UP TO IT RIGHT NOW" AND REMAINED IN BED RESTING. PT WILL CONTINUE TO BE ENCOURAGED TO ATTEND AND PARTICIPATE IN FUTURE GROUP SESSIONS TO BEST OF ABILITY.
--- NOTE | 2019-03-23 11:52 | NUR ---
AM/ART/MUSIC PT ENCOURAGED TO ATTENDED BUT STATED "NO, I'M NOT FEELING UP TO IT RIGHT NOW" PT REMAINED IN BED ENTIRE GROUP, BUT WILL CONTINUE TO BE ENCOURAGED TO ATTEND AN DPARTICIPATE TO BEST MALIK PT ABILITY IN FUTURE GROUP SESSIONS.
--- NOTE | 2019-03-23 16:00 | NUR ---
PM/MUSIC/LEISURE SKILLS PT ATTENDED AND PARTICIPATED BY OBSERVING, LISTENING TO MUSIC, AND DRINKING COFFEE. PT PLEASANT AND DID NOT EXPRESS ANY AGITATION AT THIS TIME. PT WILL CONTINUE TO ATTEND AND PARTICIPATE IN FUTURE GROUP SESSIONS TO BEST OF ABILITY.
--- NOTE | 2019-03-23 19:15 | NUR ---
PASSAR ON UNIT TO SEE PATIENT.
[2019-03-23 19:51] VITALS: BP 138/79
--- NOTE | 2019-03-24 00:19 | NUR ---
NO ADVERSE BEHAVIORS NOTED. PT ALERT AND ORIENTED X4. PT CALM, COOPERATIVE, INTERACTIVE WITH STAFF AND PEERS. ATE 100% OF HS SNACK. MEDICATION COMPLIANT WITHOUT DIFFICULTY. PT DENIES SI/HI AND HALLUCINATIONS. NO NOTED RESPONDING TO INTERNAL STIMULI. NO PHYSICAL COMPLAINTS VOICED. PT CURRENTLY LAYING DOWN WITH EYES CLOSED, RESPIRATIONS EASY AND REGULAR, NO SIGNS OR SYMPTOMS OF DISTRESS NOTED. PLAN IS TO CONTINUE TO MONITOR MOOD AND BEHAVIORS. PROVIDE 1:1 FOR VENTILATION OF FEELINGS. ENCOURAGE MEDICATION COMPLIANCE AND EDUCATE. MAINTAIN Q 15 MIN CHECKS.
--- NOTE | 2019-03-24 01:52 | NUR ---
24 HOUR CHART CHECK COMPLETED.
--- NOTE | 2019-03-24 05:21 | NUR ---
PATIENT OBSERVED ON Q 15 MIN CHECKS TO HAVE SLEPT APPROX 9 HOURS WITH NO AWAKENINGS OR SIGNS AND SYMPTOMS OF DISTRESS NOTED.
[2019-03-24 08:01] VITALS: BP 135/79
--- NOTE | 2019-03-24 12:24 | NUR ---
AM GROUP PT ENCOURAGED TO ATTEND AND PARTICIPATE BUT PT CHOSE TO REMAIN IN ROOM SLEEPING AT THIS TIME. PT WILL CONTINUE TO BE ENCOURAGED TO ATTEND AN DPARTICIPATE IN GROUP TO BEST OF PT ABILITY.
--- NOTE | 2019-03-24 13:16 | NUR ---
P: DEPRESSED MOOD, ISOLATIVE AND WITHDRAWN AT TIMES. I: ONE ON ONE AND REDIRECTION R: EFFECTIVE. P ATIENT IS ALERT TO PERSON, PLACE, TIME AND SITUATION; ABLE TO VOICE NEEDS. MOOD IS DEPRESSED, WITHDRAWN AND ISOLATIVE AT TIMES. DENIES ANY HALLUCINATIONS, DELUSIONS, HI/SI OR PAIN. MEDICATION COMPLAINT. Q 15 MINUTE SAFETY CHECKS MAINTAINED. MUCH ENCOURAGEMENT TO PARTICIPATE IN GROUP SESSION. 1 PERSON ASSIST WITH ACTIVITIES OF DAILY LIVING, CONTINENT OF BOWEL AND BLADDER. SET UP FOR MEALS, ENCOURGED TO COME DOWN TO DINING TO EAT MEALS. AMBULATORY WITH STEADY GAIT USING WHEELED WALKER. P: CONTINUE TO MONITOR FOR AGGRESSION AND ANXIETY. PROVIDE ONE ON ONE AND REDIRECTION NEEDED. ENCOURAGED TO PARTICIPATED IN GROUP SESSIONS.
--- NOTE | 2019-03-24 15:04 | NUR ---
Shift chart check completed.
--- NOTE | 2019-03-24 15:20 | NUR ---
DR. BOWEN ON UNIT TO ASSESS PATIENT.
[2019-03-24 20:00] VITALS: BP 116/70
--- NOTE | 2019-03-24 21:23 | NUR ---
24 HR chart check completed.
--- NOTE | 2019-03-24 22:36 | NUR ---
P-ISOLATIVE, DEPRESSED I-ENCOURAGED VENTILATION OF FEELINGS & PROVIDE EMOTIONAL SUPPORT, ADMINISTER MEDICATIONS, MONITOR SLEEP R-PT REPORTS FEELING BETTER & STATED HE IS NOT DEPRESSED ANYMORE. HOWEVER HE DOES APPEAR TO BE DEPRESSED & HAS BEEN LIMITED VERBALLY. ALERT & ORIENTED X 4. REMAINED ISOLATIVE TO HIS ROOM THIS EVENING & REFUSED HS SNACK. COMPLIANT TAKING MEDS. MOVES ABOUT THE UNIT VIA WHEELCHAIR. ABLE TO MAKE HIS NEEDS KNOWN. P-CONTINUE TO MONITOR & PROVIDE PHYSICAL ASSISTANCE & EMOTIONAL SUPPORT NEEDED
--- NOTE | 2019-03-25 04:39 | NUR ---
PT HAS SLEPT PAST 2300
--- NOTE | 2019-03-25 07:30 | NUR ---
OT NOTE Pt was seen this A.M. 1:1 for 30 minute OT session with nursing staff present for observation only. Upon arrival pt was supine in bed. Pt identified by name and and had complaints of increased fatigue. Pt transferred supine to sit EOB with modA for assist with UB. While sitting EOB pt donned shirt with SBA after set up and pants with Steffen for inital start over his toes. Sit to stand completed from bed level with CGA and use of w/w for UE support. Functional mobility was completed from the EOB to the bathroom with CGA and use of w/w. Pt then stood at commode while completing toileting tasks with CGA due to being unsteady when standing without UE support. Pt then stood sink side while washing his hands with CGA, pt had one retrograde LOB that occured requiring Steffen to correct. Functional mobility then completed from his room to the dining room with CGA and use of w/w. Pt had several LOB throughout occured over all directions requiring Steffen to correct. Several standing rest breaks taken throughout. Pt was left sitting upright in the dining room under [facility] staff supervision. Continue with POC as able. DARRICK Cao/[place]
--- NOTE | 2019-03-25 07:43 | NUR ---
PATIENT SITTING IN DINING ROOM WITH PEERS, EATING BREAKFAST AT THIS TIME. NO S/S OF DISTRESS NOTED. RESPS EVEN AND UNLABORED ON ROOM AIR.
[2019-03-25 07:59] VITALS: BP 124/58
--- NOTE | 2019-03-25 08:00 | NUR ---
Treatment Plan meeting with Dr. Chairez, RN, AT, and [place]. Plan for discharge at the end of the week. Pt. has been accepted at [facility]. is still in Decision making process.
--- NOTE | 2019-03-25 10:33 | NUR ---
Met with pt this AM who was pleasant as he was preparing to eat his breakfast. Pt asked about his discharge. Reminded pt that a document from the state has to be in place before pt can discharge to a different NF. Pt voiced that he remembers that now. Spoke with pt's Mary Ellen who confirmed that she and her children are agreeable to pt discharging to [facility]. Notifed Irena Ojeda, [facility] liaison, of this.
--- NOTE | 2019-03-25 11:37 | NUR ---
AM GROUP/EXERCISE AND PARACHUTE PT DID NOT ATTEND MORNING GROUP THERAPY. PT WAS IN BED RESTING.
--- NOTE | 2019-03-25 13:06 | NUR ---
Shift chart check completed.
--- NOTE | 2019-03-25 14:30 | NUR ---
P- DEPRESSED MOOD, ISOLATIVE TO ROOM. REFUSE TO ATTEND/PARTICIPATE IN GROUP THERAPIES. I- ASSESS MOOD, ORIENTATION, SI/HI, HALLUCINATIONS, DELUSIONS OR PAIN. PROVIDE WITH MEDICATIONS ON TIME WITH EDUCATION ON EACH. 1:1 THERAPEUTIC INTERACTION WITH EMOTIONAL SUPPORT AND VENTILATION OF FEELINGS PROVIDED. PROVIDE WITH COPING/RELAXATION TECHNIQUES. ENCOURAGE TO ATTEND/PARTICIPATE IN GROUP THERAPIES FOR EMOTIONAL SUPPORT AND SOCIALIZATION. ENCOURAGE INTERACTION WITH PEERS AND STAFF. R- ALERT AND ORIETED X3. PATIENT STATES THAT HIS MOOD IS "FINE". PATIENT HAS DEPRESSED/FLAT AFFECT AND ANSWERS IN SHORT PHRASES. DENIES SI/HI, HALLUCINATIONS OR PAIN. NO S/S OF INTERACTING WITH INTERNAL STIMULI. NO S/S OF DELUSIONAL THOUGHT PROCESS NOTED. NO S/S OF DISTRESS NOTED. RESPS EVEN AND UNLABORED ON ROOM AIR. GAIT STEADY WHILE UTILIZING WALKER. MAKES NEEDS KNOWN. PATIENT COMES OUT OF ROOM FOR MEALS. REMAINS ISOLATIVE TO SELF AND IN ROOM. REFUSE TO ATTEND/PARTICIPATE IN GROUP THERAPIES. WITH 1:1 THERAPEUTIC INTERACTION PT DENIES FEELING UPSET, PT STATES "I'M JUST FINE". PT STATES HE PERFERS THE QUIET ENVIRONMENT IN HIS ROOM. PATIENT TALKS IN SHORT PHRASES WHEN OTHERS TALK TO HIM FIRST. MEDICATION COMPLIANT. P- ASSESS MOOD, ORIENTATION, SI/HI, HALLUCINATIONS, DELUSIONS OR PAIN EVERY SHIFT. PROVIDE MEDICATIONS ON TIME WITH EDUCATION ON EACH. ENCOURAGE TO UTILIZE COPING/RELAXATION SKILLS. 1:1 THERAPEUTIC INTERACTION WITH EMOTIONAL SUPPORT AND VENTILATION OF FEELINGS PROVIDED WHEN NEEDED. ENCOURAGE TO ATTEND/PARTICIPATE IN GROUP THERAPIES FOR EMOTIONAL SUPPORT AND SOCIALIZATION. ENCOURAGE INTERACTION WITH PEERS AND STAFF. FALLING STAR PROGRAM MAINTAINED. Q15 MINUTE CHECKS MAINTAINED FOR SAFETY.
--- NOTE | 2019-03-25 15:07 | NUR ---
PHYSICAL THERAPY Patient presented to therapy in standing position in hallway with no concerns or complaints. Patient gives informed consent for treatment. Patient performed ambulation with Wh Walker and CGA X 1 FOR SAFETY due to retropulsion for 50' x 2 with 3 instances of LOB to the rear corrected by the patient himself. DARRICK NEWSOME PRESENT WITNESS FOR PATIENT TREATMENT. Patient was walked to his room where he was left on EOB. Patient was 1:1 with this BINGO CASHIER for 10 minutes total. SHAY LANDON BINGO CASHIER
--- NOTE | 2019-03-25 16:45 | NUR ---
PM GROUP/LEISURE SKILLS PT ATTENDED BUT UNABLE TO PARTICIPATE PT OBSERVED AND LISTENED TO MUSIC. WHEN PT TALKING WITH THIS STAFF PT WAS VERY SOFT SPOKEN AND HARD TO UNDERSTAND. PT ASKED THIS STAFF FOR HELP UP OUT OF CHAIR, BUT MINH STATES HE IS ABLE TO GET UP WITH HIS WALKER. STAFF DIRECTED PT TO UTILIZE WALKER. PT WILL CONTINUE TO ATTEND FUTURE RGOUP SESSIONS.
--- NOTE | 2019-03-25 19:39 | NUR ---
24 HR chart check completed.
[2019-03-25 20:01] VITALS: BP 129/76
--- NOTE | 2019-03-25 20:51 | NUR ---
EVENING GROUP PT ATTENDED AND VIEWED COLOR THERAPY VIDEO AND ATE SOME OF SNACK. PT DID NOT EXPRESS ANY AGITATION AT THIS TIME AND WILL CONTINUE TO ATTEND GROUP AND PARTICIPATE TO BEST OF PT ABILITY.
--- NOTE | 2019-03-25 21:34 | NUR ---
P-LESS DEPRESSED, LESS ISOLATIVE I-ENCOURAGED VENTILATION OF FEELINGS & PROVIDE EMOTIONAL SUPPORT, ADMINISTER MEDICATIONS, MONITOR SLEEP R-PT CONTINUES TO REPORT THAT HE IS FEELING BETTER & DENIES ANY DEPRESSION. REMAINS LIMITED VERBALLY. ALERT & ORIENTED X 3. SAT IN THE DINING ROOM DURING RECREATIONAL ACTIVITIES BUT DID NOT PARTICIPATE. ATE SNACK. COMPLIANT TAKING MEDS. MOVES ABOUT THE UNIT VIA WHEELCHAIR. ABLE TO MAKE HIS NEEDS KNOWN. P-CONTINUE TO MONITOR & PROVIDE PHYSICAL ASSISTANCE & EMOTIONAL SUPPORT NEEDED
--- NOTE | 2019-03-26 05:10 | NUR ---
PT HAS SLEPT PAST 2099
--- NOTE | 2019-03-26 07:41 | NUR ---
PHYSICAL THERAPY Patient seen this am for therapy visit and was sitting up on EOB upon therapist arrival. Patient identified by name / and OT assistant media buyer was present this morning for observation only. Patient voices no new c/o's and was a little drowsy upon awakening. Patient transfers sit to stand from low bed surface, SBA and ambulates with use of wh walker, SBA, demonstrating very slow, "waddling" gait pattern. Patient was very cautious with decreased stride for a total of 60' x 1, demonstrating bouts of unsteady gait. Patient returned to activity room chair at table awaiting breakfast, under [facility] staff Supervision. Will continue per POC as tolerated, total treatment time 13 minutes. Elías Chiu, GREEN END DEPARTMENT SUPERVISOR
--- NOTE | 2019-03-26 07:42 | NUR ---
OT NOTE Pt was seen this A.M. 1:1 for 16 minute OT session with MUSIC PROFESSIONALS and nursign staff present for observation only. Upon arrival pt was sitting upright on the EOB. Pt identified by name and and had no complaints at this time. Pt completed sit to stand transfer completed from bed level with CGA and use of w/w for UE support. Functional mobility completed around the room and into the dining room. Pt had two LOB that occured backwards that required Steffen to correct. Challenged pt's dynamic standing tolerance needed for increased I in self care tasks and functional transfers, pt was able to tolerate aprox 7 minutes at a time before sitting due to fatigue. Pt was left sitting upright in the dining room under [facility] staff supervision. Continue with POC as able. DARRICK Cao/[place]
[2019-03-26 08:08] VITALS: BP 146/75
--- NOTE | 2019-03-26 08:58 | NUR ---
DR. TRENT NOTIFIED OF PATIENT BEING DISCHARGED, TO NOTIFY DR. FLEMING OF TODAY'S DISCHARGE.
[2019-03-26] MEDS ORDERED: EXELON13.3 MG/21 T (09:23)
[2019-03-26] MEDS ORDERED: ROZEREM8 MG PO (09:23)
[2019-03-26] MEDS ORDERED: DIVALPROEX SOD500 M1 PO (09:23)
[2019-03-26] MEDS ORDERED: CITALOPRAM20 MG PO (09:23)
[2019-03-26] MEDS ORDERED: RISPERIDONE2 M2 PO (09:23)
--- NOTE | 2019-03-26 10:51 | NUR ---
PLEASANT COOPERATIVE WITH ALL ASPECTS OF CARE, MEDICATION COMPLIANT, PT SITS IN GROUP SESSIONS BUT JUST "PEOPLE WATCHES" FOR THE MOST PART. REQUIRES LIGHT ASSIST FOR HOC AND WILL SPEAK WHEN SPOKEN TOO, AFFECT IS FLAT AT TIMES BUT WILL REACT WHEN TALKED WITH FOR PERIODS OF TIME. NO SI/HI OR DELUSIONS NOTED. WILL CONTINUE TO MONITOR 15MIN CHECK
--- NOTE | 2019-03-26 11:40 | NUR ---
AM GROUP/LIGHT AND MUSIC THERAPY PT ATTENDED MORNING GROUP THERAPY AND PARTICIPATED BY SITTING WITH PEERS AND LISTENING TO CONVERSATION. PT WOULD OCCATIONALLY ADD TO THE TOPIC. PT ASKED SEVERAL TIMES, "DO I GET TO GO TODAY?" PT EXHIBITED NO AGITATION WHILE IN GROUP
--- NOTE | 2019-03-26 13:28 | NUR ---
TRANSPORTATION AT ENTRANCE; PATIENT READY FOR DISCHARGE. PATIENT ASSISTED TO WHEELCHAIR. ALL BELONGING AND DISCHARGE INSTRUCTIONS SENT WITH PATIENT OFF UNIT WITH STAFF ASSISTANCE TO SET UP TRANSPORT.
--- NOTE | 2019-03-26 15:52 | NUR ---
Provided patient update to Irena Ojeda of [facility].
--- NOTE | 2019-03-26 15:52 | NUR ---
PM GROUP/ART AND MUSIC PT SAT AT A TABLE WITH PEERS STARING INTO SPACE. PT EYES WERE WATERING AND WAS QUESTIONED IF HE WERE CRYING? PT WOULD ONLY SHAKE HIS HEAD. PT ASKED SEVERAL TIMES,"ANY WORD?" IN REFERENCE TO BEING DISCHARGED. PT EXHIBITED NO AGITATION WHILE IN GROUP.
--- NOTE | 2019-03-26 16:32 | NUR ---
OCCUPATIONAL THERAPY CO-SIGN I approve of the Occupational Therapy notes written above. JANICE ARMSTRONG OTR/[place]
--- NOTE | 2019-03-26 19:36 | NUR ---
24 HR chart check completed.
[2019-03-26 19:50] VITALS: BP 125/69
--- NOTE | 2019-03-26 21:35 | NUR ---
P-ISOLATIVE I-ENCOURAGED VENTILATION OF FEELINGS & PROVIDE EMOTIONAL SUPPORT, ADMINISTER MEDICATIONS, MONITOR SLEEP R-PT CONTINUES TO REPORT THAT HE IS FEELING BETTER & DENIES ANY DEPRESSION. REMAINS LIMITED VERBALLY. ALERT & ORIENTED X 3. ISOLATED SELF TO ROOM THIS EVENING. REFUSED SNACK. COMPLIANT TAKING MEDS. MOVES ABOUT THE UNIT VIA WHEELCHAIR. ABLE TO MAKE HIS NEEDS KNOWN. P-CONTINUE TO MONITOR & PROVIDE PHYSICAL ASSISTANCE & EMOTIONAL SUPPORT NEEDED
--- NOTE | 2019-03-27 04:36 | NUR ---
PT HAS SLEPT PAST 2199
--- NOTE | 2019-03-27 07:25 | NUR ---
PHYSICAL THERAPY Patient seen this am for therapy visit and was supine in bed upon therapist arrival. OT acute care nursing assistant was present for observation only as patient transfers supine to sit EOB with Min A x 1. Patient completed sit to stand transfer from low bed surface, CGA, then ambulated 50'x 1, wh walker, CGA, demonstating bouts of unsteady gait pattern, decreased stride and mild fatigue. Patient was also a little cautious during standing activities this session and returned to activity room chair at table awaiting breakfast under [facility] staff Supervision. Will continue per POC as tolerated, total treatment time 14 minutes. Elías Chiu, RECEIVING TANK OPERATOR
--- NOTE | 2019-03-27 07:35 | NUR ---
OT NOTE Pt was seen this A.M. 1:1 for 15 minute OT session with BROADCAST TRANSMITTER OPERATOR and nursing staff present for observation only. Upon arrival pt was supine in bed. Pt identified by name and and had no complaints at this time. Pt transferred supine to sit EOB with modA for assist with UB. Requested for pt to bhargav B socks and pt stated "I am not able to do that." Pt gave no other response as to why he was unable resulting in maxA for donning of B socks. Sit to stand completed from bed level with CGA and use of w/w. Functional mobility completed to the dining room due to pt declining other ADL tasks in the room, mobility completed with CGA and use of w/w. Pt was able to tolerate aprox 7 minutes of dynamic standing with four standing rest breaks throughout. Pt was left sitting uproght in the dining room under [facility] staff supervision. Continue with POC as indicated. DARRICK Cao/[place]
[2019-03-27 07:40] VITALS: BP 125/71
--- NOTE | 2019-03-27 08:00 | NUR ---
Treatment Plan meeting with Dr. Chairez, RN, AT, SW and [employer]. Plan for discharge today if Resident Review and Level of Care return. Pt. will discharge to [facility].
--- NOTE | 2019-03-27 08:30 | NUR ---
Resident Review Returns. Pt. has been ruled out and does not require further review. Level of Care Submitted to [facility]. Documentation faxed to [phone] for Pre Admission Review.
--- NOTE | 2019-03-27 11:42 | NUR ---
Level of Care Returns. Pt. is able to enter Nursing Facility. Facility is aware of discharge today and Transportation has been arranged with [facility] to transport with a crop picker time 2:00 p.m.
--- NOTE | 2019-03-27 11:44 | NUR ---
AM GROUP PT DID NOT ATTEND MORNING GROUP THERAPY. PT WAS IN BED RESTING
--- NOTE | 2019-03-27 12:21 | NUR ---
Discharge Paperwork Faxed to [facility]. [phone]
--- NOTE | 2019-03-27 12:29 | NUR ---
DR. CALERO NOTIFIED OF PATIENT BEING DISCHARGED TODAY, TO INFORM DR. FLEMING.
--- NOTE | 2019-03-27 13:26 | NUR ---
NURSE TO NURSE REPORT GIVEN TO GWEN AT [facility]..
--- NOTE | 2019-03-27 13:32 | NUR ---
AMBULANCE SERVICE PRESENT, PATIENT READY FOR DISCHARGE. PATTIENT ASSISTED TO LIS. ALL BELONGING AND DISCHARGE INSTRUCTIONS SENT WITH PATIENT OFF UNIT.
--- NOTE | 2019-03-27 15:41 | NUR ---
Patient discharged today to [facility]. Follow-up will be with Dr Chairez, visiting psychiatrist. Patient was pleased to learn of his discharge as he is anxious to get to his new home. Notified pt's Mary Ellen of pt's discharge. While at [facility], pt did not display any difficult behaviors. He was pleasant with staff and did participate in some of the programming.
--- NOTE | 2019-03-29 15:57 | NUR ---
OCCUPATIONAL THERAPY CO-SIGN I approve of the Occupational Therapy notes written above. JANICE ARMSTRONG OTR/[place]
--- NOTE | 2019-03-29 16:32 | NUR ---
PHYSICAL THERAPY CO-SIGN I approve of the Physical Therapy notes written above. NICOLE SCOTT, PT, DPT
== END 2019-03-27 13:33 | DRG 758 ==
LOC: 3N 12:03
PROVIDERS: ADMIT Psychiatry & Neurology Psychiatry
DX: F63.81 Intermittent explosive disorder (principal); G10 Huntington's disease; I10 Essential (primary) hypertension; F33.3 Major depressive disorder, recurrent, severe with psychotic symptoms; D68.59 Other primary thrombophilia; F02.80 Dementia in other diseases classified elsewhere, unspecified severity, without behavioral disturbance, psychotic disturbance, mood disturbance, and anxiety; E78.5 Hyperlipidemia, unspecified; G40.909 Epilepsy, unspecified, not intractable, without status epilepticus; E11.9 Type 2 diabetes mellitus without complications; F01.51 Vascular dementia, unspecified severity, with behavioral disturbance; M19.90 Unspecified osteoarthritis, unspecified site; I25.10 Atherosclerotic heart disease of native coronary artery without angina pectoris; F41.9 Anxiety disorder, unspecified; Z95.1 Presence of aortocoronary bypass graft; Z86.73 Personal history of transient ischemic attack (TIA), and cerebral infarction without residual deficits; Z80.42 Family history of malignant neoplasm of prostate